=== PATIENT | male | born 1995 | race Caucasian/White ===

== ENCOUNTER 2016-07-19 20:04 | Emergency (ER) | payer OTHER ==
[~2016-07-19 20:04] MED LIST: IBUPROFEN400 MG GT; LOPERAMIDE2 MG PO; OMEPRAZOLE DR20 M1 PO; ZOF4 PO
[2016-07-19 20:45] LABS: BASOPHIL % 0.4 % (0-2); PLATELET COUNT 280 x10^3mcL (130-400); RED CELL DISTRIBUTION WIDTH 12.2 % (11.5-14.5)
[2016-07-19 21:00] LABS: CALCIUM 8.8 mg/dL (8.5-10.1); CARBON DIOXIDE 28.1 mmol/L (21-32); CHLORIDE SERUM 100 mmol/L (98-107); GFR1 > 60 mL/min; GLUCOSE SERUM 102 mg/dL (74-106); POTASSIUM SERUM 3.5 mmol/L (3.5-5.1); SODIUM SERUM 140 mmol/L (136-145)
[2016-07-19 21:06] LABS: ALBUMIN 3.9 g/dL (3.4-5.0); ALKALINE PHOSPHATASE 77 U/L (46-116); ALT/SGPT 52 U/L (16-63); AMYLASE 59 U/L (25-115); AST/SGOT 27 U/L (15-37); BILIRUBIN TOTAL 0.5 mg/dL (0.20-1.00); LIPASE 112 IU/L (73-393)
[2016-07-19 22:41] VITALS: BP 131/76
== END 2016-07-19 22:41 | disposition home or self-care (01) ==
LOC: ED 20:04
PROVIDERS: Emergency Medicine
DX: R42 Dizziness and giddiness (principal); R10.13 Epigastric pain; F41.9 Anxiety disorder, unspecified; F99 Mental disorder, not otherwise specified
CPT/HCPCS: Q0092

== ENCOUNTER 2016-07-26 20:36 | Emergency (ER) | payer OTHER ==
[2016-07-26 23:51] VITALS: BP 119/856
== END 2016-07-26 23:51 | disposition home or self-care (01) ==
LOC: ED 20:36
DX: R10.13 Epigastric pain (principal)

== ENCOUNTER 2016-12-12 14:22 | Emergency (ER) | payer OTHER ==
[2016-12-12 15:55] LABS: PLATELET COUNT 220 x10^3mcL (130-400); RED CELL DISTRIBUTION WIDTH 12.3 % (11.5-14.5)
[2016-12-12 15:56] LABS: BASOPHIL % 0 % (0-2)
[2016-12-12 16:01] LABS: CARBON DIOXIDE 32.7 mmol/L (21-32); CHLORIDE SERUM 102 mmol/L (98-107); CREATININE SERUM 1.1 mg/dL (0.7-1.3); GFR1 > 60 mL/min; GLUCOSE SERUM 153 mg/dL (74-106); SODIUM SERUM 140 mmol/L (136-145)
[2016-12-12 16:06] LABS: ALKALINE PHOSPHATASE 86 U/L (46-116); ALT/SGPT 51 U/L (16-63); AST/SGOT 70 U/L (15-37); BILIRUBIN TOTAL 1.2 mg/dL (0.20-1.00)
[2016-12-12 17:19] VITALS: BP 108/66
== END 2016-12-12 17:19 | disposition home or self-care (01) ==
LOC: ED 14:22
PROVIDERS: Emergency Medicine
DX: I10 Essential (primary) hypertension (principal); E86.0 Dehydration
CPT/HCPCS: Q0092

== ENCOUNTER 2016-12-28 18:52 | Inpatient (IN) | payer OTHER ==
[~2016-12-28] VITALS: Ht 170.2 cm; Wt 75.3 kg
[2016-12-28 20:39] LABS: BASOPHIL % 0.2 % (0-2); PLATELET COUNT 219 x10^3mcL (130-400); RED CELL DISTRIBUTION WIDTH 12.4 % (11.5-14.5)
[2016-12-28 20:40] LABS: CARBON DIOXIDE 30.5 mmol/L (21-32); CHLORIDE SERUM 102 mmol/L (98-107); GFR1 > 60 mL/min; GLUCOSE SERUM 147 mg/dL (74-106); POTASSIUM SERUM 3.6 mmol/L (3.5-5.1); SODIUM SERUM 140 mmol/L (136-145)
[2016-12-28 20:46] LABS: ALBUMIN 3.7 g/dL (3.4-5.0); ALKALINE PHOSPHATASE 102 U/L (46-116); ALT/SGPT 94 U/L (16-63); AMYLASE 49 U/L (25-115); AST/SGOT 132 U/L (15-37); BILIRUBIN TOTAL 1.2 mg/dL (0.20-1.00); LIPASE 93 IU/L (73-393); TOTAL PROTEIN, SERUM 7.9 g/dL (6.4-8.2)
[2016-12-28 21:03] LABS: microscopic required? YES; urine erythrocyte NEGATIVE (NEGATIVE)
[2016-12-29] VITALS (7 sets, daily range): BP systolic 95–123; BP diastolic 60–77; Ht 170.2 cm; Wt 75.3 kg
[2016-12-29 00:22] LABS: FREE T4 1.45 ng/dL (0.76-1.46); FREE THYROXINE INDEX 4.1 ug/dL (1.4-4.5); T3 TOTAL 0.96 ng/mL; T4(THYROXINE) 11.2 ug/dL (4.7-13.3)
[2016-12-29 04:58] LABS: AMPHETAMINE QUAL UR NONE DETECTED (NEG <=1000)
[2016-12-29 06:58] LABS: BASOPHIL % 0.2 % (0-2); PLATELET COUNT 230 x10^3mcL (130-400); RED CELL DISTRIBUTION WIDTH 12.6 % (11.5-14.5)
[2016-12-29 07:09] LABS: CALCIUM 8.6 mg/dL (8.5-10.1); CARBON DIOXIDE 26.6 mmol/L (21-32); CHLORIDE SERUM 106 mmol/L (98-107); CREATININE SERUM 0.9 mg/dL (0.7-1.3); GFR1 > 60 mL/min; GLUCOSE SERUM 98 mg/dL (74-106); HDL CHOLESTEROL 37 mg/dL (40-60); MAGNESIUM 1.8 mg/dL (1.8-2.4); PHOSPHOROUS 3.6 mg/dL (2.5-4.9); POTASSIUM SERUM 3.3 mmol/L (3.5-5.1); SODIUM SERUM 141 mmol/L (136-145); TRIGLYCERIDES 68 mg/dL (<150)
[2016-12-29 07:16] LABS: CHOLESTEROL 112 mg/dL (<200)
[2016-12-30 06:17] LABS: BASOPHIL % 0.2 % (0-2); PLATELET COUNT 217 x10^3mcL (130-400); RED CELL DISTRIBUTION WIDTH 12.6 % (11.5-14.5)
[2016-12-30 06:36] LABS: ALBUMIN 3.4 g/dL (3.4-5.0); ALKALINE PHOSPHATASE 98 U/L (46-116); ALT/SGPT 248 U/L (16-63); AST/SGOT 125 U/L (15-37); BILIRUBIN TOTAL 1.16 mg/dL (0.20-1.00); CARBON DIOXIDE 28.1 mmol/L (21-32); CHLORIDE SERUM 104 mmol/L (98-107); CREATININE SERUM 0.8 mg/dL (0.7-1.3); GFR1 > 60 mL/min; GLUCOSE SERUM 94 mg/dL (74-106); MAGNESIUM 1.7 mg/dL (1.8-2.4); PHOSPHOROUS 4.6 mg/dL (2.5-4.9); POTASSIUM SERUM 3.7 mmol/L (3.5-5.1); SODIUM SERUM 140 mmol/L (136-145); TOTAL PROTEIN, SERUM 7.2 g/dL (6.4-8.2)
[2016-12-30 06:38] VITALS: BP 100/62
[2016-12-30 08:36] VITALS: BP 112/63
[2016-12-30 12:24] VITALS: BP 111/66
[2016-12-30 16:39] VITALS: BP 110/65
[2016-12-30 21:04] VITALS: BP 104/61
[2016-12-31 05:42] VITALS: BP 102/70
[2016-12-31 06:32] LABS: BASOPHIL % 0.4 % (0-2); PLATELET COUNT 185 x10^3mcL (130-400); RED CELL DISTRIBUTION WIDTH 12.8 % (11.5-14.5)
[2016-12-31 06:48] LABS: MAGNESIUM 1.8 mg/dL (1.8-2.4); PHOSPHOROUS 4.2 mg/dL (2.5-4.9)
[2016-12-31 09:13] VITALS: BP 108/61
[2016-12-31] MEDS ORDERED: REG5 PO (10:12)
[2016-12-31] MEDS ORDERED: IBUPROFEN400 MG PO (10:13)
[2016-12-31 10:23] VITALS: BP 108/61
== END 2016-12-31 11:58 | disposition home or self-care (01) | DRG 263 ==
LOC: ED 18:52 → DU 22:18
PROVIDERS: Emergency Medicine; Family Medicine Sports Medicine; Internal Medicine; Surgery; ADMIT Family Medicine
PROC: 0FT44ZZ Resection of Gallbladder, Percutaneous Endoscopic Approach (ICD-10-PCS; principal; 2016-12-29 10:30)
DX: K80.62 Calculus of gallbladder and bile duct with acute cholecystitis without obstruction (principal); N17.0 Acute kidney failure with tubular necrosis; K76.0 Fatty (change of) liver, not elsewhere classified; G90.9 Disorder of the autonomic nervous system, unspecified; E83.42 Hypomagnesemia; N39.0 Urinary tract infection, site not specified; E86.0 Dehydration; F41.9 Anxiety disorder, unspecified; E87.6 Hypokalemia; Z79.899 Other long term (current) drug therapy
CPT/HCPCS: 83880; 84439; 94150; J0330; J0690; J0696; J1885; J1956; J2250; J2405; J2704; J2710; J3010; J3475; J3480; J3490; J7030; J7120; Q0092

== ENCOUNTER 2018-05-19 22:56 | Emergency (ER) | payer OTHER ==
[~2018-05-19] VITALS: Ht 170.2 cm; Wt 93.0 kg
[~2018-05-19 22:56] MED LIST changes: +IBUPROFEN400 MG PO; +REG5 PO
[2018-05-19 22:59] VITALS: Ht 170.2 cm; Wt 93.0 kg
[2018-05-19 23:54] VITALS: BP 140/89
== END 2018-05-19 23:54 | disposition home or self-care (01) ==
LOC: ED 22:56
DX: J40 Bronchitis, not specified as acute or chronic (principal); J02.9 Acute pharyngitis, unspecified; F41.9 Anxiety disorder, unspecified
CPT/HCPCS: J7613; J7644

== ENCOUNTER 2018-05-24 02:47 | Emergency (ER) | payer OTHER ==
[~2018-05-24] VITALS: Ht 170.2 cm; Wt 93.0 kg
[2018-05-24 03:06] VITALS: Ht 170.2 cm; Wt 93.0 kg
[2018-05-24 04:23] VITALS: BP 121/70
== END 2018-05-24 04:23 | disposition home or self-care (01) ==
LOC: ED 02:47
DX: J40 Bronchitis, not specified as acute or chronic (principal); F41.9 Anxiety disorder, unspecified; Z87.19 Personal history of other diseases of the digestive system

== ENCOUNTER 2018-08-28 22:39 | Emergency (ER) | payer OTHER ==
[~2018-08-28] VITALS: Ht 170.2 cm; Wt 87.1 kg
[2018-08-28 23:19] VITALS: Ht 170.2 cm; Wt 87.1 kg
[2018-08-29 03:04] VITALS: BP 106/66
== END 2018-08-29 03:04 | disposition home or self-care (01) ==
LOC: ED 22:39
DX: J06.9 Acute upper respiratory infection, unspecified (principal); R10.13 Epigastric pain; Z90.49 Acquired absence of other specified parts of digestive tract; Z87.19 Personal history of other diseases of the digestive system
CPT/HCPCS: Q0092